=== PATIENT | female | born 1950 | race Two or more races ===

== ENCOUNTER → 2017-04-03 | Outpatient (CLI) | payer MEDICARE, OTHER ==
[~2017-04-03] MED LIST: ANALAPRIL PO; CHLORTHALIDONE25 MG PO; ENALAPRIL MALEA20 MG PO; FISH OIL 1,0001 CAP PO; MEDROL PO; MEPROBAMATE400 MG PO; SYNTHROID PO; TOPROL XL PO; TRAZODONE HCL100 MG PO
--- NOTE | ~2017-04-03 | MY28 ---
[facility] A Service of [facility] RADIOLOGY TEXT RESULTS PATIENT: EPI HAIR LOCATION: [facility] : 46 UNIT #: [id number] AGE: [address]: Tej Perez MD SEX: F ORDER DR: [id number] [facility]. [place], [place] [address] [id number] O MR#: [id number] Acc #: [id number] NAME: EPI HAIR : 1950 SEX: F STUDY DATE/TIME: 04/03/2017 11:53 UNIT: [facility] ROOM: STUDY DESCRIPTION: CARMENZA SCREEN W/ CAD UNI RT Attending Physician: Tej Smith M.D. Referring Physician: Tej Smith M.D. Ordering Physician: Tej Smith M.D. Primary Care Physician: Tej Smith M.D. MEDICAL IMAGING REPORT This report is preliminary unless electronic signature is present EXAM Right digital screening mammogram with CAD COMPARISON September 01, 2011 performed at [facility], [address] [place] [address], [facility]. INDICATIONS Breast cancer screening. 66-year-old asymptomatic female with history of left mastectomy for breast cancer. She presents for breast cancer screening and denies current complaints. FINDINGS The right breast is almost entirely fatty. Benign oil cysts are present in the right breast. There are also arterial calcifications in the right breast. Circular markers denote multiple skin lesions. There are no suspicious findings in the right breast. IMPRESSION 1. Post left mastectomy for breast cancer. 2. No mammographic evidence of malignancy in the right breast. Continued annual screening mammography and clinical breast exam are recommended. Patients over the age of 40 are entered into a reminder system with target due date for the next mammogram. A result letter will also be sent to the patient. BIRADS: 2 Benign Finding Dictated by... Farhat Alfaro M.D. [facility] A Service of [facility] RADIOLOGY TEXT RESULTS PATIENT: EPI HAIR LOCATION: [facility] : 46 UNIT #: [id number] AGE: [address]: Tej Perez MD SEX: F ORDER DR: THIS IS AN ELECTRONICALLY VERIFIED REPORT Farhat Alfaro M.D. at 04/14/2017 10:15 PM MARIOLA/bia TD: 04/10/2017 22:39 JOB #: [id number] MEDICAL IMAGING REPORT Page 1 of 1 COPY
== END | disposition home or self-care (01) ==
LOC: CWCC 11:34
DX: Z12.31 Encounter for screening mammogram for malignant neoplasm of breast (principal); Z85.3 Personal history of malignant neoplasm of breast; Z90.12 Acquired absence of left breast and nipple
CPT/HCPCS: G0202